=== PATIENT | male | born 1940 | race Caucasian/White ===

== ENCOUNTER → 2016-04-29 | Day surgery (SDC) | payer OTHER ==
[~2016-04-29] VITALS: Ht 175.3 cm; Wt 108.9 kg
[~2016-04-29] MED LIST: ATORVASTATIN CA10 M1 PO; COREG6.25 M1 PO; COZAAR25 M1 PO; JANUMET 50-1,01 EACH PO; TAMSULOSIN HCL0.4 M1 PO
--- NOTE | 2016-04-29 09:18 | Operative Report ---
Operative/Inv Procedure Report Surgery Date: 04/29/16 Name of Procedure: Tonsillectomy, left ureteroscopy, basket extraction of left distal ureteral calculus, exchange of left double-J ureteral stent Pre-Operative Diagnosis: Left distal ureteral calculus Post-Operative Diagnosis: Same Estimated Blood Loss: stacie Surgeon/Tool Drawing Checker: Lillie HE, Gautam VALENCIA MD,GAUTAM Peralta Anesthesia: laryngeal mask airway Drains: 26 cm 6 [place] left double-J ureteral stent with long suture, 18 [place] Owens catheter Specimens: Left distal ureteral calculus and urine culture Complications: None Condition: Stable Operative Indication: Left distal ureteral calculus. A left double-J ureteral stent had previously been placed by one of the [facility] urologists Operative/Procedure Note Note: The patient was taken to the cystoscopy room identified. As placed in supine position on the cystoscopy table. A surgical pause was executed appropriately with the patient awake. Gen. anesthesia was then induced via LMA. He was in place in the dorsolithotomy position and prepped and draped in usual fashion for cystoscopy. A surgical pause was executed appropriately. The 22 [place] cystoscope sheath was placed into the bladder under direct vision using a 30 lens. Anterior urethra was normal. 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 Cystoscopy revealed an essentially normal bladder other than some edema around the left ureteral orifice where his left ureteral stent was exiting. The distal end of the stent was grasped with a forceps and brought out the external urethral meatus. A guidewire was placed through the stent and the stent removed. The semirigid ureteroscope was then advanced through the urethra into the bladder. A second guidewire was placed through the ureteroscope which aided in place in the left ureteroscope into the left ureter. A second wire was removed. The left distal ureteral calculus was visualized. Spiral basket was used to grab the left ureteral stone and it was removed in one piece. At this point ureteroscope was advanced back in the left ureter and advanced up to the level of the proximal ureter. The ureter above the level of the stone was dilated. There were no further stone fragments seen ureteroscope was then removed. The cystoscope was back loaded onto the guidewire. Open-ended catheter was placed over the wire and the wire removed. Some contrast was injected to outline the left renal collecting system. At this point a guidewire was placed back through the open-ended catheter which was removed. Under visual fluoroscopic control a 26 cm 6 [place] left double-J ureteral stent was placed. Fluoroscopy confirmed the proximal and the stent coiled in the left renal pelvis and the distal end coiled in the bladder. A long suture was left attached the distal end of the stent exiting the urethra. An 18 [place] Owens catheter was placed and a leg bag attached to it for drainage. The patient tolerated the procedure well. At its completion was taken recovery room in stable condition. Findings: 5 mm left distal ureteral calculus, large prostate Discharge Disposition: PACU CC: LILLIE HE,GAUTAM Peralta
--- NOTE | 2016-04-30 17:37 | RADIOLOGY REPORT ---
EXAMINATION: FLUOROSCOPY LEFT RETROGRADE PYELOGRAM IN OPERATING ROOM. CLINICAL INFORMATION: Left ureteral stent removal, retrograde pyelogram and stent placement in OR. COMPARISON: None. TECHNIQUE: Fluoroscopy was provided in the operating room. 6 spot views were obtained of the left abdomen and left pelvis. FINDINGS: Multiple spot films are obtained. There is contrast opacification of the left pelvicalyceal system which is mildly distended. There is placement of a left double pigtail ureteral stent. FLUOROSCOPY TIME: 0.6 minutes. DOSE: 15.7 mGy; 0.500 mGym2. IMPRESSION: Left retrograde pyelogram and stent placement.
== END ==
LOC: STS 04:53
DX: N20.1 Calculus of ureter (principal); I10 Essential (primary) hypertension; E11.9 Type 2 diabetes mellitus without complications
CPT/HCPCS: 74000; 82355; 87086; 93005; 93010; C2617; J0131; J0690; J2250